=== PATIENT | female | born 1960 | race Caucasian/White ===

== ENCOUNTER 2017-04-14 05:42 | Day surgery (SDC) | payer OTHER ==
[~2017-04-14] VITALS: Ht 172.7 cm; Wt 65.4 kg
[2017-04-14 06:36] VITALS: Ht 172.7 cm; Wt 65.4 kg
[2017-04-14 06:44] VITALS: BP 140/66; PULSE 58; RESP 14
[2017-04-14] MEDS ORDERED: lexapro (06:49)
[2017-04-14 08:18] VITALS: BP 141/71; RESP 20
--- NOTE | 2017-04-14 12:01 | GILP ---
DATE OF PROCEDURE: 04/14/2017 CLINICIAN: Alex Adams MD PROCEDURE PERFORMED: Colonoscopy. PREOPERATIVE DIAGNOSIS: Screening colonoscopy. POSTOPERATIVE DIAGNOSES: 1. Colonoscopy all the way to the cecum. 2. Internal hemorrhoids. 3. No colon neoplasm was identified. INDICATION: The patient is a 57-year-old female patient who was scheduled for screening colonoscopy. The procedure and possible complications were well explained to the patient. She understood and consented to the procedure. DESCRIPTION OF PROCEDURE: Under the influence of fentanyl and Versed, the colonoscope was carefully introduced in the rectum and under direct vision it was advanced all the way to the cecum. FINDINGS: The patient had internal hemorrhoids. No colon neoplasm was identified. She tolerated the procedure very well. There was no complication from the procedure. At the end of procedure she was awake with stable vital signs and she was discharged home in the care of her family. IMPRESSION: 1. Colonoscopy all the way to the cecum. 2. Internal hemorrhoids. 3. No colon neoplasm was identified. PLAN: Next screening colonoscopy in 10 years. Dictated By: MD MARY Erwin/elissa/edmar /Document#: [id number] CC: Alex Adams MD;*EndCC*
[2017-04-15] MEDS ORDERED: FENTAnyl 50 MCG/ML VIAL ONE (18:01)
[2017-04-15] MEDS ORDERED: MIDAZOLAM 1 MG/ML 2 ML INJ ONE (18:01)
== END 2017-04-14 10:51 | disposition home or self-care (01) ==
LOC: GIL 05:42
PROVIDERS: ATTEND Internal Medicine Gastroenterology
DX: Z12.11 Encounter for screening for malignant neoplasm of colon (principal); K64.8 Other hemorrhoids
CPT/HCPCS: 45378; Z7610; J2250; J3010